=== PATIENT | male | born 2000 | race Two or more races ===

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

== ENCOUNTER 2025-02-26 21:07 | Emergency (ER) | payer OTHER ==
[2025-02-27 00:55] VITALS: BP 130/80; PULSE 80; RESP 20; TEMP 97.3; O2SAT 96
[2025-02-27] MEDS ORDERED: AMOX875T4 PO (01:03)
[2025-02-27] MEDS ORDERED: ACET500T58 PO (01:03)
--- NOTE | 2025-02-27 01:05 | ED.PDOC ---
History of Present Illness(SKN HPI Comments 24 year old male presents to ER with complaints of dog bite to right hand x 20 minutes. Patient reports that his [place] [employer] dog who is fully up-to-date on shots bit him on his right hand 20 minutes prior to arrival to ER and sustained puncture wounds to right hand at that time. He reports 4/10 pain localized to right hand and states he is unsure when his last tetanus shot was. Denies numbness/tingling, right wrist pain or any further symptoms/complaints Chief Complaint: Animal Bite Time Seen by MD: 21:28 Primary Care Provider: DENIES History of Present Illness: Nurses Notes, Medications, Allergies Allergies: Coded Allergies: NO KNOWN ALLERGIES (Unverified , 04/22/20) Home Meds Active Scripts Amoxicillin & Pot Clavulanate (Amoxicillin/Potassium Cla) 875 Mg Tab, 1 TAB PO BID for 7 Days, #14 TAB 0 Refills Prov:CESAR TALAVERA 02/27/25 Acetaminophen (Acetaminophen) 500 Mg Tab, 500 MG PO Q4HPRN, #30 TAB 0 Refills Prov:CESAR TALAVERA 02/27/25 Information Source: Patient Mode of Arrival: Ambulatory Immunization Status of Animal: Unknown Past Medical History PAST MEDICAL HISTORY: Denies Surgical History: Denies all surgeries Family History Family History: Unknown Social History Smoker: Non-Smoker Alcohol: Denies ETOH Use Drugs: Denies Drug Use Lives In: Home Constitutional: denies: chills, diaphoresis, fatigue, fever, malaise, sweats, weakness, others EENTM: denies: blurred vision, double vision, ear bleeding, ear discharge, ear drainage, ear pain, ear ringing, eye pain, eye redness, hearing loss, mouth pain, mouth swelling, nasal discharge, nose bleeding, nose congestion, nose pain, photophobia, tearing, throat pain, throat swelling, voice changes, others Respiratory: denies: cough, hemoptysis, orthopnea, SOB at rest, shortness of breath, SOB with excertion, stridor, wheezing, others Cardiovascular: denies: chest pain, dizzy spells, diaphoresis, Dyspnea on exertion, edema, irregular heart beat, left arm pain, lightheadedness, palpitations, PND, syncope, others Gastrointestinal: denies: abdomen distended, abdominal pain, blood streaked bowels, constipated, diarrhea, dysphagia, difficulty swallowing, hematemesis, melena, nausea, poor appetite, poor fluid intake, rectal bleeding, rectal pain, vomiting, others Genitourinary: denies: burning, dysuria, flank pain, frequency, hematuria, incontinence, penile discharge, penile sore, pain, testicle pain, testicle swelling, urgency, others Neurological: denies: dizziness, fainting, headache, left sided numbness, left sided weakness, numbness, paresthesia, pre-existing deficit, right sided numbness, right sided weakness, seizure, speech problems, tingling, tremors, weakness, others Musculoskeletal: reports: others (As stated in HPI) Integumetry: reports: others (As stated in HPI) Allergic/Immunocompromised: denies: Difficulty Healing, Frequent Infections, Hives, Itching, others Hematologic/Lymphatic: denies: anemia, blood clots, easy bleeding, easy bruising, swollen glands, others Endocrine: denies: excessive hunger, excessive sweating, excessive thirst, excessive urination, flushing, intolerance to cold, intolerance to heat, unexplained weight gain, unexplained weight loss, others Psychiatric: denies: anxiety, bipolar disorder, depression, hopeless, panic d isorder, schizophrenia, sleepless, suicidal, others Physical Exam General Appearance: No Apparent Distress HEENT: PERRL/EOMI Neck: Full Range of Motion, Non-Tender, Normal Respiratory: Chest Non-Tender, Lungs Clear, No Accessory Muscle Use, No Respiratory Distress, Normal Breath Sounds Cardiovascular: No Murmur, No Gallop, Regular Rate/Rhythm Breast Exam: Deferred Gastrointestinal: NOT DONE Genitalia: Deferred Pelvic: Deferred Rectal: Deferred Extremities: Normal capillary refill, Normal range of motion Neurologic: Alert, No Motor Deficits, Normal Affect, Normal Mood, No Sensory Deficits Cerebellar Function: Normal Reflexes: Normal Skin: Dry, Warm, Other (2 small puncture wounds <1 cm in size noted to right hand. Slight TTP/swelling/erythema localized to wound edges. No nailbed injury/foreign body/further skin changes noted. Patient able to fully move all fingers right hand. No TTP to right wrist noted) Peripheral Pulses: 2+ Radial (R), 2+ Radial (L), 2+ Brachial (R), 2+ Brachial (L) Lymphatic: No Adenopathy Was a procedure done? Was a procedure done?: No Sedation Sedation?: No Differential Diagnosis (INTG) Differential Diagnosis: Laceration, Open Fracture, Retained Foreign Body X-Ray, Labs, Meds, VS Vital Signs Date Time Temp Pulse Resp B/P (MAP) Pulse Ox O2 Delivery O2 Flow Rate FiO2 02/27/25 00:55 97.3 80 20 130/80 (97) 96 97.3 02/26/25 21:08 97.3 83 18 138/84 95 97.3 Current Medications Medications (Trade) Dose Ordered Sig/Airam Route Start Time Stop Time Status Last Admin Diphtheria/ Tetanus/Acell Pertussis (Boostrix T-Dap) 0.5 ml ONCE ONCE IM 02/27/25 01:00 02/27/25 01:01 DC 02/27/25 01:44 Ceftriaxone Sodium (Rocephin) 1,000 mg ONCE ONCE IM 02/27/25 01:00 02/27/25 01:01 DC 02/27/25 01:44 Right hand x-ray reviewed Rocephin 1 g IM ordered Tdap 0.5 mL IM ordered Wound cleaning performed at bedside Wound care/cleaning discussed and advised Patient neurovascularly intact Advised to follow up with PCP in 1-2 days Patient verbalized understanding and agreeable with current plan of care Advised to return to ER immediately if symptoms worsen Images Reviewed?: Images reviewed and evaluated by me (INDEPENDENTLY REVIEWED BY THIS PROVIDER- NO ACUTE FRACTURE, PENDING RADIOLOGY REPORT) Time of 1ST Reevaluation: 01:03 Reevaluation 1ST: N/A Patient Education/Counseling: Diagnosis, Treatment, Prognosis, Need For Follow Up Family Education/Counseling: No Family Present SEPSIS Sepsis Screen Date sepsis recognized/suspect: Feb 26, 2025 Time Sepsis recognized/suspect: 2108 Recent Procedure: No On Antibiotic Therapy: No Respiratory Rate >20: No Heart Rate >90: No Temp<36 C (96.8 F) or >38.3 C: No SBP <90 or MAP <65 mmHG: No New Acute Mental Status Change: No Is the patient on CPAP, BIPAP,: No Physician Orders R Hand 3 View Xray (02/27/25 00:54) Vital Signs Date Time Temp Pulse Resp B/P (MAP) Pulse Ox O2 Delivery O2 Flow Rate FiO2 02/27/25 00:55 97.3 80 20 130/80 (97) 96 97.3 02/26/25 21:08 97.3 83 18 138/84 95 97.3 Medications Medications Dose Ordered Sig/Airam Route Start Time Stop Time Status Last Admin Dose Admin Ceftriaxone Sodium 1,000 mg ONCE ONCE IM 02/27/25 01:00 02/27/25 01:01 DC 02/27/25 01:44 Diphtheria/ Tetanus/Acell Pertussis 0.5 ml ONCE ONCE IM 02/27/25 01:00 02/27/25 01:01 DC 02/27/25 01:44 Departure 1 Departure Impression: Primary Impression: Dog bite of right hand Qualified Codes: S61.451A - Open bite of right hand, initial encounter; W54.0XXA - Bitten by dog, initial encounter Disposition: HOME / SELF CARE / HOMELESS Condition: Stable e-Prescriptions Amoxicillin & Pot Clavulanate (Amoxicillin/Potassium Cla) 875 Mg Tab 1 TAB PO BID for 7 Days, #14 TAB 0 Refills Prov: CESAR TALAVERA 02/27/25 Acetaminophen (Acetaminophen) 500 Mg Tab 500 MG PO Q4HPRN, #30 TAB 0 Refills Prov: CESAR TALAVERA 02/27/25 Discharged With: Self Critical Care Note Critical Care Time?: No Stability Stability form required: No Heart Score Heart Score: Heart Score Response (Comments) Value History N/A 0 EKG N/A 0 Age N/A 0 Risk Factors N/A 0 Troponin N/A 0 Total 0 CESAR TALAVERA Feb 27, 2025 01:05
[2025-02-27] MEDS: cefTRIAXone SOD 1,000 MG VL IM ONE (01:44)
[2025-02-27] MEDS: TETANUS-DIPTH-ACEL PERTUSSIS 0.5ML SYR Tdap IM ONE (01:44)
--- NOTE | 2025-02-27 06:27 | DVH ---
CLINICAL INDICATION: right hand pain TECHNIQUE: XY R HAND 3 VIEW XRAY Comparison: None FINDINGS/IMPRESSION: : There is no evidence of acute fracture or dislocation. Soft tissues are unremarkable.
== END 2025-02-27 04:05 | disposition home or self-care (01) ==
LOC: ER 21:07
DX: S61.451A Open bite of right hand, initial encounter (principal); Z23 Encounter for immunization; W54.0XXA Bitten by dog, initial encounter; Y93.89 Activity, other specified; Y92.89 Other specified places as the place of occurrence of the external cause; Y99.8 Other external cause status
CPT/HCPCS: 73130; 90471; 90715; 96372; 99284; J0696